=== PATIENT | male | born 1975 | race African-American/Black ===

== ENCOUNTER 2019-08-05 02:45 | Emergency (ER) | payer OTHER ==
[~2019-08-05] VITALS: Ht 177.8 cm; Wt 108.4 kg
[2019-08-05] MEDS ORDERED: TETANUS/DIPHTHERIA TOX ADULT 0.5 ML SYR IM ONE (03:00)
--- NOTE | 2019-08-05 03:50 | Diagnostic Imaging Report ---
X-ray right finger 3 views HISTORY: Pain. COMPARISON: None available. FINDINGS: Bones: No acute displaced fracture. Osseous alignment is within normal limits. Joints: The joint spaces are well-maintained. Soft tissues: Mild soft tissue swelling of the second finger. IMPRESSION: No acute radiographic osseous abnormality. Mild soft tissue swelling of the second finger. Signed by: Shashank Patrick DO on 08/05/2019 3:46 AM
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
== END 2019-08-05 04:00 | disposition home or self-care (01) ==
LOC: ER 02:45
DX: S60.470A Other superficial bite of right index finger, initial encounter (principal); W55.51XA Bitten by raccoon, initial encounter; Y99.0 Civilian activity done for income or pay; E11.9 Type 2 diabetes mellitus without complications
CPT/HCPCS: 90471; 90714; 99283